=== PATIENT | female | born 1955 | race Two or more races ===

== ENCOUNTER 2020-12-03 09:00 | Outpatient (CLI) | payer OTHER ==
[2020-12-11] MEDS ORDERED: FERR325T23 PO (12:15)
[2020-12-11] MEDS ORDERED: ASCO500T10 PO (12:15)
== END 2020-12-03 23:59 | disposition home or self-care (01) ==
LOC: LAB 09:00
PROVIDERS: ATTEND Specialist
DX: Z01.812 Encounter for preprocedural laboratory examination (principal); Z20.822 Contact with and (suspected) exposure to COVID-19
CPT/HCPCS: C9803; U0003

== ENCOUNTER 2020-12-09 05:05 | Inpatient (IN) | payer OTHER ==
[~2020-12-09] VITALS: Ht 152.4 cm; Wt 106.1 kg
[2020-12-09 05:25] VITALS: BP 125/67
--- NOTE | 2020-12-09 05:25 | NUR ---
MS RN ADMITTING NOTES PATIENT ARRIVED TO THE UNIT AT APPROXIMATELY 0525. PATIENT WAS ABLE TO AMBULATE INDEPENDENTLY TO HER ROOM. PATIENT WAS ORIENTED TO THE STAFF AND ROOM. PATIENT'S ALERT AND ORIENTED X4. PATIENT'S STABLE ON ROOM AIR. PATIENT HAD NO IV ACCESS WHEN SHE CAME TO THE UNIT, SURGERY WILL INSERT AN IV PRIOR TO THE PATIENT'S L TOTAL KNEE ARTHROPLASTY. SAFETY MEASURES IN PLACE: BED LOCKED, SIDE RAILS UPX2, AND CALL LIGHT WITHIN REACH OF THE PATIENT. WILL CONTINUE TO MONITOR THE PATIENT.
[2020-12-09] MEDS ORDERED: ANESTHESIA TRAY IN PYXIS 1 EA TRAY MC ONE (05:45)
[2020-12-09] MEDS ORDERED: BUPIVACAINE 0.5 % PF 150 MG/30 ML VIAL ONE (05:46)
[2020-12-09] MEDS ORDERED: POLYMYXIN B SULFATE 500,000 UNITS ONE (05:46)
--- NOTE | 2020-12-09 06:02 | NUR ---
MS RN NOTES PATIENT WAS TRANSFERRED VIA GURNEY TO THE OR. PATIENT SIGNED ALL OF THE PREOP CONSENTS FOR HER L TOTAL KNEE ARTHROPLASTY WITH DR. HERNANDEZ.
[2020-12-09] MEDS ORDERED: LEVO50TA8 PO (06:19)
[2020-12-09] MEDS ORDERED: HYDROMORPHONE INJ 2 MG/ML DISP.SYRIN ONE ×2 (06:31→09:11)
--- NOTE | 2020-12-09 06:40 | NUR ---
MS RN CLOSING NOTES PATIENT IS CURRENTLY IN THE OPERATING ROOM FOR HER L TOTAL KNEE ARTHROPLASTY. PATIENT'S ALERT AND ORIENTEDX4. PATIENT'S STABLE ON ROOM AIR. THE REST OF THE VITALS WERE STABLE. WILL ENDORSE THE DAY SHIFT NURSE TO COMPLETE A FULL ADMISSION ASSESSMENT.
[2020-12-09] MEDS ORDERED: TRANEXAMIC ACID 3,000 MG in SODIUM CHLORIDE IRRIG SOLUTION 70 ML IR ONE (07:00)
[2020-12-09] MEDS ORDERED: SEVOFLURANE 250 ML BOTTLE IH ONE (07:13)
--- NOTE | 2020-12-09 07:34 | NUR ---
TODD NOTES: RECEIVED PATIENT IN BED AWAKE,ALERT/ORIENTED X4.PICC LINE ON THE AMARI WITH 3 LUMEN AND HD CATH ON THE RIGHT FEMORAL AREA.WITH INDWELLING DIEHL CATH IN PLACE(ANURIC).BLE'S SWOLLEN WITH PATCHES OF DRY SCABS.SACRAL AREA DTI WITH MEPILEX IN PLACE.DENIES PAIN AND DISCOMFORT AT THIS TIME.REMAINS ON IV ATB MERREM Q12 HRS. FOR ELEVATED WBC.WE WILL CONTINUE TO MONITOR Addendum: 12/09/20 at 0754 by LAURA ANTUNEZ RN ERROR
--- NOTE | 2020-12-09 07:35 | NUR ---
MS/RN NOTES RECEIVED REPORT PATIENT IS CURRENTLY IN SURGERY AT THIS TIME.
[2020-12-09] MEDS ORDERED: ZOLPIDEM TARTRATE 5 MG TABLET PO PRN (08:30)
[2020-12-09] MEDS ORDERED: BISACODYL SUPP (10 MG) 10 MG/SUPP.RECT SUPP.RECT RC PRN (08:30)
[2020-12-09] MEDS ORDERED: DOCUSATE SODIUM 250 MG CAPSULE PO PRN (08:30)
[2020-12-09] MEDS ORDERED: ONDANSETRON HCL/PF 4 MG/2 ML VIAL IVP PRN (08:30)
[2020-12-09] MEDS ORDERED: HYDROCODONE/APAP 5/325MG TABLET PO PRN (08:30)
[2020-12-09] MEDS ORDERED: ACETAMINOPHEN 325 MG TABLET PO PRN (08:30)
[2020-12-09] MEDS ORDERED: SENNOSIDES 8.6 MG TABLET PO PRN (08:30)
[2020-12-09] MEDS ORDERED: FENTANYL PF 100MCG/2ML AMPUL ONE (08:49)
[2020-12-09] MEDS ORDERED: MAG HYDROX/AL HYDROX/SIMETH 30 ML UDC PO PRN (10:00)
[2020-12-09] MEDS ORDERED: MENTHOL/CETYLPYRD (CEPACOL) 1 LOZ LOZENGE PO PRN (10:00)
[2020-12-09] MEDS ORDERED: diphenhydrAMINE HCL 25 MG CAPSULE PO PRN (10:00)
[2020-12-09] MEDS ORDERED: CLONIDINE HCL 0.1 MG TABLET PO PRN (10:00)
[2020-12-09 10:30] VITALS: BP 119/102
--- NOTE | 2020-12-09 10:34 | NUR ---
MS RN NOTES: RECEIVED PATIENT ALERT AND ORIENTED X3,SEEMS SLEEPY AND NOT IN ANY DISTRESS.ON OXYGEN INHALATION AT 3 LPM VIA NASAL CANNULA,ON REGULAR DIET,IVF OF D5 1/2 NS ON THE RFA.S/P LEFT TOTAL KNEE ARTHROPLASTY,WEIGHT BEARING TOLERATED WITH PT EVAL AND TX ORDERED.H AND H IN AM AND DRESSING CHANGE ON 12/11/20Wednesday.CLERK TRAVEL RESERVATIONS FOR DISCHARGE PLAN
[2020-12-09 10:45] VITALS: BP 119/102
[2020-12-09] MEDS: IV D5/0.45 NACL 1,000 ML IV PRN ×2 (10:57→18:06)
[2020-12-09 11:00] VITALS: BP 116/84
[2020-12-09] MEDS: HYDROMORPHONE 1 MG/1 ML DISP.SYRIN IM/IV/SC PRN ×2 (12:40→20:13)
--- NOTE | 2020-12-09 14:59 | NUR ---
SS Consult: SS consult for discharge plan. Pt. Is a 65-year-old female. Pt. demonstrates adequate insight to the reason for hospitalization. Per pt., she was brought to hospital by her niece Shellie [[phone]] due to knee surgery. Per pt., she injured her left knee due to work-related injury. Pt. was oriented x4, alert, and cooperative. During interview, pt. was capable of following directions, made appropriate eye-contact, and appeared well-groomed. SW explored pt.s Hx of mental health and substance abuse. Pt. reported no Hx of mental health, SI/HI, denied AH/VH, paranoia or delusions. SW explored pt.s living situation. Per pt., she lives with her sister and brother [[id number] [place] [address], ]. Per pt., she reports having adequate support at home. SW explored pt.s financial status. Per pt., she is retired, but is financially stable with support of family. Pt. reported she uses walker and cane when walking. Per pt., she is independent with her ADLs, but with the help of family if needed. Per pt., her niece took the week off work to care for pt. Pt. reported that her niece will be her ride home once discharged. Pt. reported she will be safe and have many supports. [facility] provided pt. with senior resources and pt. accepted. Plan: SW provided available resources and pt. accepted. Once discharged, pt.s niece will be her mode of transportation and will return to home [[id number] [place] [address]]. Resources Provided: ABUSE PREVENTION: ELDER ABUSE HOTLINE (31/08) ADULT PROTECTIVE SERVICES HOTLINE LONG-TERM CARE [facility] Region AREA ON AGING (HOTLINE) ADULT DAY HEALTH CARE CARE CENTERS: Private pay or Medi-jluis funded adult day care [facility] , [facility] , [facility] , [facility] Day Health Care , [facility] Day [facility] Care , [facility] , [place] [facility] , [facility] , [place] ALZHEIMERS DISEASE/DEMENTIA: Alzheimers Association Helpline [facility] Chapter www.alz.org/[facility] Department of Aging www.lacity.org Family Caregiver [place] www.caregiver.org [place] Caregiver Resources Center/Family Support www.[facility].org CANCER RESOURCES: [place] Cancer Society www.cancer.org Cancer Support Community www.CancerSupportVvsb.org: CancerCare www.cancercare.org [facility] Cancer Support [place] www.[facility].org ALLEGHANY HEALTH HEALTH ASSOCIATIONS: AARP www.aarp.org ALS Association (ask for Juanita) www.als.org Norwegian Diabetes Association www.diabetes.org Norwegian Heart Association www.heart.org Norwegian Lung Association www.lungusa.org Norwegian Parkinson Disease Association www.apdaparkinson.org Norwegian [place] , www.redcross.org Arthritis Foundation www.arthritis.org Crohns & Colitis Foundation of [place] www.ccfa.org/chapters/robin National Multiple Sclerosis Society www.nationalmssociety.org Myasthenia Gravis Foundation www.myasthenia-ca.org National Stroke Association www.stroke.org CONSERVATORSHIP & GUARDIANSHIP: AARP Noreen Macdonald Legal Services Center for Health Care Rights [place] Information and Referral Cdl Team Truck Driver Foundation [facility]: [facility] Referral Service [facility] Legal Services Office of the Public Guardian [place] EYESIGHT DISORDER RESOURCES: [place] Macular Degeneration Foundation [facility] www.[facility].org GRIEF AND BEREAVEMENT RESOURCES: The [place] [facility] , [facility] THE HOPE Connection , [facility] Bereavement Center , [place] HEARING DISORDER RESOURCES: [place] Telephone Access Program Deaf and Disabled Telecommunications Program www.ddtp.cpu.ca.gov HearRx Hearing Centers ([place]) Better Hearing Systems , [place] GLAD ([facility] Agency on Deafness) V/ TTY; Biomass Facilitator , [facility] Hearing [facility] -low income hearing aid assistance www.Simalayahearingfoundation.org [place] [facility] Care , Serafin HELP AT HOME CAREGIVER SUPPORT: In Home Support Services (Must have Medi-Jluis to be eligible) *Ask for a list of agencies that provide services to assist with care in the home. Local Senior Centers also have listings of care providers. HOME SAFETY MODIFICATIONS AND EQUIPMENT: Senior centers have additional referrals. [place] FounderSync and Keep Your Pharmacy Open Investment Dept. Handyworker Program (low income) or Visit http://hcidla.lacity.org/prh-rjijge-ng for more information National Seating and Mobility and/or ; Forever Active www.foreverEmber Entertainment.Gnammo Stay Home Safe www.Stayhomesafe.com LIFE ALERT RESPONSE SYSTEM: Uniken Systems Services 607-936-2237 www. Run My Errands Life Alert 331-207-3198 www.Auvitek International Life Station 917-489-0352 www.Wysada.com.Gnammo Safe Return [phone] www.alz.or/safereturn Cell Phones for Seniors www.Infoxel MEALS AND FOOD PROGRAMS: [place] Meals on Wheels [phone] [place] Meals on Wheels [phone] [facility] [phone] [place] to the Homebound [phone] [place] to the Homebound [phone] [facility] to the Homebound [phone] [facility] to the Homebound [phone] [facility] Kalia Duggan [phone] [facility] [phone] ONE Generation [phone] [facility] [phone] [facility] [phone] Meals on Wheels [phone] For all ages: $6.85/ meal w side. Delivered M-F from 10 am-1pm. Application and payment is done over the phone. Frozen meals available for weekends. Emergency Food [facility] [phone] [facility] Electrotyper Helper [phone] [facility] [phone] HinaPremier Health- Brown bag lunches [phone] [facility] [phone] MEAL/GROCERY DELIVERY PROGRAMS: [facility] Gourmet Meals [phone]- [facility] [phone]- [facility] Magic Kitchen [phone] Moms Meals [phone] (ask Casey for Discount Select grocery stores may provide delivery. MEDICAL INSURANCE SUPPORT SERVICES: Center for Health Care Rights [phone] Health Insurance Counseling/Advocacy Programs (HICAP)-Must have Medicare. Offers counseling for Medi-Jluis eligibility [phone] Department of Public Electrotyper Helper [phone] www.[facility].ca.gov Medicare 583-308-9209 www.socialsecurity.org Social Security [phone] SENIOR ACTIVITY PROGRAMS: *Contact a local senior center, adult school, recreation facility or community college for education, fitness, recreation, and social programs. Aquatic Therapy and Adapted Exercise programs through [facility] [phone] [phone] www.[facility]/encore U- Senior Friends [phone] [place] Senior Programs [phone] www.oasisnet.org Suddenly 65 www..com SENIOR CENTERS: [facility] [phone] [facility] [phone] [phone] [facility] [phone] [facility] [phone] [facility] [phone] [facility] [phone] [facility] [phone] One Generation, [facility] [phone] [facility] [phone] [facility] [phone] [facility] [phone] TRANSPORTATION: Local [facility] Centers may have applications for transportation programs and additional resources. ACCESS Services [phone] Transportation for seniors and disabled persons 7 days a week requiring 254 hr. advance reservation. Must apply and register for program barbara eligible. ZenPayroll RIDE [phone] or [phone] Transportation for seniors and persons with ADA card/metro disabled card in the [facility]. M-F only. Must register for services. ONE GENERATION [phone] Serves 65 years + in conjunction with C2C Link ride program. Must be registered with both programs. A to B Transport [phone] Provides wheelchair/gurney van service. Adult Medical Transport [phone] Accepts Medi-jluis with prior authorization. Care Van [phone] Provides wheelchair Transport. [facility] Wide Transportation [phone] Provides gurney service [facility] [phone] Gurney Transport. [facility] Transportation [phone] wheelchair & gurney transport D Transportation [phone] wheelchair & gurney transport [place] Non-Emergency Transport [phone] wheelchair & gurney transport [facility] Living [place] [phone] Short Term Transportation primarily for adults with disabilities on social security income. Nominal fee may apply and a reservation is required. Lingorami Cab [phone] or [phone] [facility] [phone] [place] [address] Services [phone] For additional programs & services VETERANS RESOURCES: Submissions for Aid and Attendance should be done directly to Federal VA office locatd at : [address] [facility] [phone] National Caregiver Support Line [phone] [facility] Veterans Services Field Office [phone] [place] Department of Affairs [phone] Pension Information [phone]
[2020-12-09] MEDS: ANCEF 1 GM/50 ML D5W IV SCH ×2 (15:24→23:13)
[2020-12-09 16:00] VITALS: BP 108/74
[2020-12-09] MEDS: DOCUSATE SODIUM 100 MG CAPSULE PO SCH (16:47)
[2020-12-09] MEDS: oxyCODONE IR immediate release 5 MG PO PRN (16:48)
--- NOTE | 2020-12-09 18:19 | NUR ---
MS RN CLOSING NOTES: PATIENT RESTING IN BED,ALERT/ORIENTEDX 4 ,S/P LEFT TOTAL KNEE ARTHROPLASTY , WRAPPED WITH CRICKET BANDAGE .REPOSITIONED AND MADE COMFORTABLE.PAIN MEDICATIONS GIVEN ORDERED WITH HELP.CONTINUE ON IVF OF D5 1/2 NS AT 125ML/HR AND ANCEF IV ATB. ABLE TO URINATE THIS SHIFT.SCD ON THE RIGHT LEG IN PLACE.WILL CONTINUE TO MONITOR
--- NOTE | 2020-12-09 19:00 | NUR ---
RN ms opening notes Received Pt from morning nurse. Pt is laying in bed comfortably watching TV accompanied by Pt's niece. Pt is S/P of L total knee arthroplasty with Dr. Skaggs. Pt is alert and orientedX4. Respiration is normal in room air. No SOB. No S/S of distress noted. Iv site at R hand # 20 is clean, intact and flushes well. IV site at L hand is clean, intact and infusing well D5 1/2 NS @ 125 ml/hr. Dressing on L knee is clean, intact and dry. Safety precautions is maintained. Bed at low position, brakes locked, side rails upX3 and call light is within reach. Will continue to monitor.
[2020-12-09 20:00] VITALS: BP 132/65
[2020-12-09] MEDS: FAMOTIDINE (20 MG) 20 MG TABLET PO SCH (20:12)
--- NOTE | 2020-12-09 20:13 | NUR ---
RN notes Pt is complaining of pain on L knee pain 10/10 on pain scale and requesting pain meds. Administered dilaudid 0.5 mg/iv push as ordered for pain. VS is stable. safety precautions is maintained. Will continue to monitor.
[2020-12-10] MEDS: oxyCODONE IR immediate release 5 MG PO PRN ×2 (03:22→10:08)
--- NOTE | 2020-12-10 03:22 | NUR ---
RN notes Pt is complaining of L knee pain and requesting pain med. Administered oxycodone 5 mg/ po as ordered for pain. safety precaution is maintained. will continue to monitor.
[2020-12-10] MEDS: IV D5/0.45 NACL 1,000 ML IV PRN (03:29)
[2020-12-10] MEDS: HYDROMORPHONE 1 MG/1 ML DISP.SYRIN IM/IV/SC PRN ×5 (04:29→20:08)
--- NOTE | 2020-12-10 04:29 | NUR ---
RN notes Pt is complaining of pain on L knee pain 10/10 on pain scale and requesting pain meds. Pt stated oxycodone didnt help the pain and the pain is very bad. Pt requesting dilaudid. Administered dilaudid 0.5 mg/iv push as ordered for pain. VS is stable. safety precautions is maintained. Will continue to monitor.
--- NOTE | 2020-12-10 06:24 | NUR ---
RN ms closing notes Pt is resting in bed comfortably. Pt is alert and orientedX4. Respiration is normal in room air. No SOB. No S/S of distress noted. VS is stable. Iv site at R hand # 20 is clean, intact and flushes well. IV site at L hand is clean, intact and infusing well D5 1/2 NS @ 125 ml/hr. Routine meds were given as ordered including pain meds for pain management. Dressing on L knee is clean, intact and dry. All needs met and attended. Safety precautions is maintained. Bed at low position, brakes locked, side rails upX3 and call light is within reach. Will endorse to morning nurse for TERI.
[2020-12-10 06:25] LABS: HEMOGLOBIN 10.5 g/dL (11.5-14.8)
[2020-12-10] MEDS: LEVOTHYROXINE SODIUM 50 MCG TABLET PO SCH (07:23)
--- NOTE | 2020-12-10 07:23 | NUR ---
MS/RN OPENING NOTES RECEIVED PATIENT ON BED AWAKE ALERT AND ORIENTEDX4. PATIENT IS ON ROOM AIR. PATIENT IN NO APPARENT RESPIRATORY DISTRESS NOTED. NO COMPLAINED OF PAIN NOTED AT THIS TIME. WILL CONTINUE TO MONITOR.
[2020-12-10] MEDS ORDERED: LEVOTHYROXINE SODIUM 50 MCG TABLET PO SCH (07:30)
[2020-12-10 08:00] VITALS: BP 115/58
[2020-12-10] MEDS: DOCUSATE SODIUM 100 MG CAPSULE PO SCH ×2 (08:15→16:38)
[2020-12-10] MEDS: FAMOTIDINE (20 MG) 20 MG TABLET PO SCH ×2 (08:15→20:08)
[2020-12-10] MEDS ORDERED: RIVAROXABAN 10 MG TABLET PO SCH (09:00)
[2020-12-10 16:00] VITALS: BP 141/61
--- NOTE | 2020-12-10 18:05 | NUR ---
MS RN CLOSING NOTES: PATIENT IN BED RESTING COMFORTABLY,DENIES PAIN AT THIS TIME AFTER DILAUDID O.5MG IVP WAS GIVEN ORDERED.AMBULATE WITH PT USING FWW THIS MORNING AND PLACED ON CPM MACHINE 2 HRS IN AM AND 2 HRS IN THE AFTERNOON,TOLERATED WELL.DISCONTINUED IVF,TOLERATING MEALS BY MOUTH. CONTINUE WITH PT AND PAIN MGMT AND DRESSING CHANGE 12/11/20.
--- NOTE | 2020-12-10 19:00 | NUR ---
RN ms opening notes Received Pt from morning nurse. Pt is laying in bed comfortably watching TV. Pt is alert and orientedX4. Respiration is normal in room air. No SOB. No S/S of distress noted. VS is stable. Iv site at R hand # 20 is clean, intact and flushes well. IV site at L hand is clean, intact and SL. Pt had PT today and put on CPM machine two times. Pt stated PT is going to put CPM back tomorrow am. Pt Refused to CPM machine back during night. Informed Pt to have incentive spirometer exercise. Pt verbalize understanding and returned demo. Dressing on L knee is clean, intact and dry. Safety precautions is maintained. Bed at low position, brakes locked, side rails upX3 and call light is within reach. Will continue to monitor.
[2020-12-10 20:00] VITALS: BP 136/64
--- NOTE | 2020-12-10 20:08 | NUR ---
RN ms notes Pt is complaining of pain on L knee 10/10 on pain scale and requesting dilaudid. Pt stated dilaudid helps with the pain. Administered dilaudid 0.5 mg as ordered for pain. VS is stable. Safety precautions is maintained. Will continue to monitor.
--- NOTE | 2020-12-11 02:12 | NUR ---
RN notes Pt is complaining of headache and requesting med. Administer tylenol 325 mg/2 tabs/po as ordered. Safety precautions is maintained. Will continue to monitor.
[2020-12-11 06:33] LABS: BASOPHILS % (AUTO) 0.2 % (0.0-2.0); EOSINOPHILS % (AUTO) 0.3 % (0.0-6.0); HEMATOCRIT 31 % (33-45); HEMOGLOBIN 10.8 g/dL (11.5-14.8); LYMPHOCYTES # (AUTO) 2.5 K/uL (0.8-4.8); LYMPHOCYTES % (AUTO) 19.6 % (20.0-44.0); MEAN CORPUSCULAR HGB CONC 34 g/dl (31.0-36.0); MEAN CORPUSCULAR VOLUME 96 fL (82-100); MONOCYTES % (AUTO) 8.1 % (2.0-12.0); NEUTROPHILS # (AUTO) 9.1 K/uL (1.8-8.9); NEUTROPHILS % (AUTO) 71.8 % (43.0-81.0); PLATELET COUNT (AUTO) 210 K/uL (150-450); RED BLOOD CELL COUNT(AUTO) 3.28 MIL/uL (4.0-5.2); WHITE BLOOD COUNT (AUTO) 12.7 K/uL (4.3-11.0)
--- NOTE | 2020-12-11 06:43 | NUR ---
RN ms closing notes Pt is resting in bed comfortably. Pt is alert and orientedX4. Respiration is normal in room air. No SOB. No S/S of distress noted. VS is stable. Iv site at R hand # 20 is clean, intact and flushes well. IV site at L hand is clean, intact and SL. Routine meds were given as ordered. Kept Pt clean, dry and comfortable. Al needs met and attended. Dressing on L knee is clean, intact and dry. Safety precautions is maintained. Bed at low position, brakes locked, side rails upX3 and call light is within reach. Will endorse to am nurse for TERI.
[2020-12-11 07:10] LABS: CALCIUM, SERUM 8.4 mg/dL (8.5-10.1); CREATININE 0.7 mg/dL (0.6-1.3); MAGNESIUM 2.4 mg/dL (1.8-2.4); POTASSIUM 3.8 mmol/L (3.5-5.1)
--- NOTE | 2020-12-11 07:23 | NUR ---
MS RN OPENING NOTE Patient in bed awake, A/O x 4. On room air, breathing evenly and unlabored. No SOB or any s/sx of distress ntoed. IV access on Right hand #20G and left hand #20G, SL both intact and patent. Dressing on L knee is clean, intact and dry. Safety precautions in place: Bed in low, locked position, siderails up x 2, call light within reach. Will continue to monitor.
[2020-12-11 08:00] VITALS: BP 124/74
[2020-12-11] MEDS: DOCUSATE SODIUM 100 MG CAPSULE PO SCH (08:05)
[2020-12-11] MEDS: FAMOTIDINE (20 MG) 20 MG TABLET PO SCH (08:06)
[2020-12-11] MEDS: LEVOTHYROXINE SODIUM 50 MCG TABLET PO SCH (08:06)
[2020-12-11] MEDS: HYDROMORPHONE 1 MG/1 ML DISP.SYRIN IM/IV/SC PRN (08:09)
[2020-12-11] MEDS ORDERED: FERR325T23 PO (12:15)
[2020-12-11] MEDS ORDERED: ASCO500T10 PO (12:15)
[2020-12-11] MEDS: oxyCODONE IR immediate release 5 MG PO PRN (13:47)
--- NOTE | 2020-12-11 13:57 | NUR ---
DISCHARGE NOTE Received order for discharge. Patient is A/O x 4, able to make needs known. Patient is breathing evenly and unlabored on room air. No SOB or s/s of distress noted. Complained of pain on left knee, PRN medication given. Discharge instructions given to patient both verbally and written, verbalized understanding. Patient's belonging accounted for, belonging sheet signed. IV access removed, catheter tip intact. Pressure dressing applied, no signs of bleeding noted. ID band removed. Exitcare folder given to patient's niece. Patient left in stable condition via private car with niece.
[2020-12-24] MEDS ORDERED: ASPIRIN 325 MG TABLET PO SCH (09:00)
== END 2020-12-11 14:00 | disposition home health service (06) | DRG 470 ==
LOC: DS 05:05 → MED 05:06
PROVIDERS: ADMIT Nurse Practitioner Family; ATTEND Nurse Practitioner Family
PROC: 0SRD0J9 Replacement of Left Knee Joint with Synthetic Substitute, Cemented, Open Approach (ICD-10-PCS; principal; 2020-12-09)
DX: M17.12 Unilateral primary osteoarthritis, left knee (principal); Z68.42 Body mass index [BMI] 45.0-49.9, adult; Z20.822 Contact with and (suspected) exposure to COVID-19; E03.9 Hypothyroidism, unspecified; E11.9 Type 2 diabetes mellitus without complications; I10 Essential (primary) hypertension; X58.XXXA Exposure to other specified factors, initial encounter; Y99.0 Civilian activity done for income or pay; Z79.82 Long term (current) use of aspirin; D50.9 Iron deficiency anemia, unspecified; E66.01 Morbid (severe) obesity due to excess calories
CPT/HCPCS: 36415; 80048-TC; 82728-TC; 82962-TC; 83540-TC; 83735-TC; 85025-TC; 85027-TC; 87081-TC; 88305-TC; 88311-TC; 97116-TC; 97530-TC; 97760-TC; A4217; C1713; C1776; G0378; J0690; J1100; J1170; J1885; J2405; J2704; J2765; J3010; J3490; J7030; J7050; J7060; L1830